=== PATIENT | female | born 1940 | race Caucasian/White ===

== ENCOUNTER 2016-10-07 15:10 | Outpatient (CLI) | payer MEDICARE, OTHER ==
[2015-08-11 12:40] VITALS: BP 180/71
--- NOTE | 2016-10-08 06:16 | Diagnostic Imaging Report ---
Report Submission Date: Oct 07, 2016 11:51:10 PM [employer] FINDER Patient ~ Study Name: KIERAN MORALES ~ Date: Oct 07, 2016 3:25:30 PM [employer]ER ~ Modality Type: CR Gender: F ~ Description: CHEST : 42 ~ Institution: [facility] Physician: CAMILLE ONTIVEROS ~ ~ ~ ~ Chest - two views Clinical history: ~Cough. ~Difficulty breathing for 2 days. Findings: ~Examination of the chest in PA and lateral views with comparison to examination of 04/19/2016 demonstrates postoperative changes with multiple sternotomy wires. ~Cardiac silhouette is enlarged and the aorta is atherosclerotic. ~There are small bilateral pleural effusions blunting the costophrenic angles. ~There is minimal pulmonary congestion. Impression: ~ 1. ~Minimal congestion with small bilateral effusions. 2. ~Cardiomegaly and aortic atherosclerosis. ~These findings are consistent with congestive heart failure. 3. ~Postoperative chest. ~ Electronically signed on Oct 07, 2016 11:51:10 PM [employer] FINDER by: Kehinde MATTHEW
== END 2016-10-07 15:11 ==
LOC: LAB 15:10
PROVIDERS: ATTEND Family Medicine
DX: J06.9 Acute upper respiratory infection, unspecified (principal); R04.2 Hemoptysis
CPT/HCPCS: 71020; 87400

== ENCOUNTER 2016-11-12 14:26 | Outpatient (CLI) | payer MEDICARE, OTHER ==
[2015-08-11 12:40] VITALS: BP 180/71
== END 2016-11-12 14:27 ==
LOC: POD 14:26
PROVIDERS: ATTEND Podiatrist
DX: B35.1 Tinea unguium (principal); M79.674 Pain in right toe(s); M79.675 Pain in left toe(s)
CPT/HCPCS: 11721; G0463

== ENCOUNTER 2017-01-14 17:15 | Observation (INO) | payer MEDICARE, OTHER ==
[2017-01-14] MEDS ORDERED: ALBUTEROL SULFATE 200 PUFF INHALER INH PRN (18:02)
--- NOTE | 2017-01-14 18:10 | History and Physical Report ---
History of Present Illnes - History of Present Illness Reason for Visit: Obstipation History of Present Illness: Kaylynn is seen today as a walk in to the clinic with c/o obstipation. She has been taking stool softeners for the past few days, and today tried to take some magnesium citrate, however she has not had any results. She has not had any fever, but has been very nauseated. She has an urge to go, but cannot do so. - Past Medical History Cardiac: CHF, HTN, Hyperlipidemia Pulmonary: Asthma, Sleep Apnea Gastrointestinal: GERD, Other (Melara's esophagus) Psych: Depression Endocrine: Hypothyroidism - Past Surgical History Past Surgical History: Hysterectomy, Hernia Repair (Ventral), Other (Mitral valve replacement (porcine)) - Past Social History Smoke: No Alcohol: None Drugs: None Lives: With Family Domestic Violence: Negative - Health Maintenance Health Maintenance: Cholesterol Influenza Vaccine: Current for this Influenza Season Pneumonia Vaccine: Yes Resuscitation Status: Resusciation Status Resuscitation Status Full Code - Unable to Obtain History Unable to Obtain: No Review of Systems - Review of Systems Constitutional: negative: Fever, Chills Eyes: negative: pain ENT: negative: Ear Pain Respiratory: negative: Cough Cardiovascular: negative: Chest Pain Gastrointestinal: Nausea, Constipation Genitourinary: negative: Dysuria Musculoskeletal: negative: Neck Pain Skin: negative: Rash Neurological: Weakness - Medications/Allergies Allergies/Adverse Reactions: Allergies Allergy/AdvReac Type Severity Reaction Status Date / Time No Known Allergies Allergy Verified 05/14/15 16:01 Exam - Exam General: Alert, Oriented to Person, Oriented to Place, Oriented to Time, Cooperative, Mild distress (due to abdominal pain) HEENT: Atraumatic, PERRLA Neck: Stridor, Rigidity Lungs: Speaks full Sentences, Wheezes (right base). No: Respiratory Distress Cardiovascular: Regular rate Murmur: Systolic Murmur Murmur Location: [place] [facility] Murmur Grade: II Abdomen: Other (Diffuse tenderness), Decreased Bowel Sounds Genitourinary: No: Right Inguinal Hernia Male Genitourinary: No: Other Female Genitourinary: No: Other Integumentary: Normal, [employer], Warm Extremities: No clubbing, No cyanosis Neurological: Normal speech Psych/Mental Status: Mental status NL Assessment/Plan - Assessment/Plan (1) Obstipation Status: Acute Current Visit: Yes Assessment: Failed outpatient treatment Plan: Admit for enema, magnesium citrate Will check KUB/CBC/CXR/CMP to r/o other pathology Hope for discharge in the morning VTE Assessment - RISK FACTOR SCORE VTE RISK FACTOR SCORES: AGE OVER 60 YEARS - RISK VTE LOW RISK: SCORE OF 1 OR LESS (RISK PROXIMAL DVT 0.4%) NO PROPHYLAXIS NEEDED (No DVT prophylaxis indicated)
[2017-01-14] MEDS ORDERED: SIMVASTATIN 20 MG TABLET ONE (19:02)
[2017-01-14] MEDS ORDERED: MONTELUKAST SODIUM 10 MG TABLET PO ONE (19:03)
[2017-01-14 19:25] VITALS: BMI 28.2
[2017-01-14] MEDS ORDERED: MONTELUKAST SODIUM 10 MG TABLET PO SCH (21:00)
[2017-01-14] MEDS ORDERED: SIMVASTATIN 20 MG TABLET PO SCH (21:00)
[2017-01-14 21:37] LABS: BASOPHILS % 0.2 (0.0-1.5); EOSINOPHILS % 1.1 % (0.0-6.8); MEAN CORPUSCULAR HEMOGLOBIN 29.5 pg (28.0-34.0); MEAN CORPUSCULAR VOLUME 90.2 fl (80.0-100.0); MONOCYTES % 3.9 % (0.0-11.0); NEUTROPHILS # 8.6 # k/uL (1.4-7.7)
[2017-01-14 21:47] LABS: eGFR (African) > 60; eGFR (Non-African) > 60
--- NOTE | 2017-01-15 00:29 | Diagnostic Imaging Report ---
WESTON OBRIEN~ [facility] [address] [address] ~ ~ ~ ~ Report Submission Date: Jan 14, 2017 9:14:44 PM CDT Patient ~ Study Name: KIERAN MORALES ~ Date: Jan 14, 2017 8:11:06 PM CDT ~ Modality Type: CR Gender: F ~ Description: CHEST : 42 ~ Institution: [facility] Physician: WESTON OBRIEN ~ ~ ~ ~ Chest -two views CLINICAL HISTORY: ~ Dyspnea on exertion. FINDINGS: ~ Examination of the chest in PA and lateral views with comparison to examination 10/07/2016 demonstrates cardiomegaly and aortic atherosclerosis. ~There are multiple sternotomy wires. ~Spinal stimulator is present in the mid and lower thoracic spine. ~Lungs are free of coalescent infiltrate. IMPRESSION: ~ Cardiomegaly and aortic atherosclerosis. ~ Postoperative chest. ~ Electronically signed on Jan 14, 2017 9:14:44 PM CDT by: Kehinde MATTHEW
--- NOTE | 2017-01-15 00:30 | Diagnostic Imaging Report ---
WESTON OBRIEN~ [facility] [address] [address] ~ ~ ~ ~ Report Submission Date: Jan 14, 2017 9:15:44 PM CDT Patient ~ Study Name: KIERAN MORALES ~ Date: Jan 14, 2017 8:14:03 PM CDT ~ Modality Type: CR Gender: F ~ Description: ABDOMEN : 42 ~ Institution: [facility] Physician: WESTON OBRIEN ~ ~ ~ ~ Obstructive series -two views CLINICAL HISTORY: ~ Obstipation. FINDINGS: ~ Examination of the abdomen in supine and upright views demonstrates gas in the colon. ~There is no obstruction or free air. ~Degenerative changes and scoliosis are present in the lumbar spine convex to the left. IMPRESSION: ~ Lumbar spondylosis and scoliosis. ~ Nonspecific abdomen. ~ Electronically signed on Jan 14, 2017 9:15:44 PM CDT by: Kehinde MATTHEW
[2017-01-15] MEDS ORDERED: IBUPROFEN 400 MG TABLET PO ONE ×2 (01:25→09:52)
[2017-01-15] MEDS: IBUPROFEN 400 MG TABLET PO PRN ×2 (01:27→09:53)
[2017-01-15] MEDS ORDERED: PANTOPRAZOLE SODIUM 40 MG TABLET ONE (04:31)
[2017-01-15] MEDS ORDERED: METOPROLOL TARTRATE 50 MG TABLET ONE (04:31)
[2017-01-15] MEDS ORDERED: LEVOTHYROXINE SODIUM 25 MCG TABLET ONE (04:31)
[2017-01-15] MEDS ORDERED: SERTRALINE HCL 50 MG TABLET ONE (04:31)
[2017-01-15] MEDS ORDERED: LOSARTAN POTASSIUM 50 MG TABLET PO ONE (04:32)
[2017-01-15] MEDS ORDERED: amLODIPine BESYLATE 5 MG TABLET ONE (04:32)
[2017-01-15] MEDS ORDERED: GABAPENTIN 100 MG CAPSULE ONE ×2 (04:32→13:06)
[2017-01-15] MEDS ORDERED: LEVOTHYROXINE SODIUM 100 MCG TABLET PO ONE (04:32)
[2017-01-15] MEDS ORDERED: LEVOTHYROXINE SODIUM 25 MCG TABLET PO SCH (07:00)
[2017-01-15] MEDS ORDERED: PANTOPRAZOLE SODIUM 40 MG TABLET PO SCH (07:00)
[2017-01-15] MEDS: GABAPENTIN 100 MG CAPSULE PO SCH ×2 (08:37→13:08)
[2017-01-15] MEDS ORDERED: SERTRALINE HCL 50 MG TABLET PO SCH (09:00)
[2017-01-15] MEDS ORDERED: METOPROLOL TARTRATE 50 MG TABLET PO SCH (09:00)
[2017-01-15] MEDS ORDERED: LOSARTAN POTASSIUM 50 MG TABLET PO SCH (09:00)
[2017-01-15] MEDS ORDERED: amLODIPine BESYLATE 5 MG TABLET PO SCH (09:00)
[2017-01-15 15:52] VITALS: BP 147/58
--- NOTE | 2017-01-17 11:01 | Discharge Summary ---
DATE OF ADMISSION: January 14, 2017 DATE OF DISCHARGE: January 15, 2017 DIAGNOSES ON THIS HOSPITALIZATION: 1. Obstipation. 2. Hyperglycemia. 3. Anemia. SUMMARIZATION OF ADMISSION HISTORY AND PHYSICAL: This is a 76-year-old female who was seen in my office on the afternoon of January 14 with the complaint of inability to have a bowel movement for the last several days, as well as diffuse abdominal pain. She has not had any fever or chills. She did say her stools had been a little bit dark, however. She is overdue for a colonoscopy and would like to have me schedule that as an outpatient, but that was not performed during this hospitalization. HOSPITAL COURSE: She was admitted. She was given magnesium citrate and plans were made for her to have an enema; however, after the magnesium citrate, she had a very large bowel movement. She was discharged back to home then in improved condition with continuation of all of her home medications. DISCHARGE INSTRUCTIONS: I will see her back next week for an evaluation. At that point, we need to set up an EGD and colonoscopy because of her dark stools and mild anemia. It was also noted that she was hyperglycemic and we will discuss that with her, as well as draw a hemoglobin A1C at her office visit. VIPUL
== END 2017-01-15 15:51 | disposition home or self-care (01) ==
LOC: SOUTH 17:15
PROVIDERS: ADMIT Family Medicine; ATTEND Family Medicine
DX: K59.00 Constipation, unspecified (principal); R73.9 Hyperglycemia, unspecified; D64.9 Anemia, unspecified
CPT/HCPCS: 71020; 74020; 80053; 85025; G0378; G0379

== ENCOUNTER 2017-01-17 12:35 | Emergency (ER) | payer MEDICARE, OTHER ==
--- NOTE | 2017-01-17 12:59 | ED Physician Documentation ---
GI Bleed - HISTORIAN Historian: patient - HPI Stated Complaint: constipation Chief Complaint: General Adult Additional Information: constipated, went to PCP with conplaint, then given mag citrate with good results, but now has abdominal fullness "all the way around" and wants an enema , her PCP sent her here to get one. on questioning she is complaining of severe aching pain in the distribution of the Left sciatic nerve, starting in her buttocks and radiating down her leg. She also complains of urgency of urine, with oliguria/anuria. will check a ua Onset: days ago Timing: still present Severity: mild Further Comments: no - Associated Symptoms Description of Stools: constipation Abdominal Pain: other (fullness/bloating) Description of Rectal Bleed: denies: bleeding w/o stools Other Related Symptoms: denies: nausea, vomiting - ROS CONST: no problems SKIN/LYMPH: denies: leg swelling CVS/RESP: none EYES/ENT: denies: problems with vision MS: none, other (she points to her left buttock and states the pain is extraordinary when she bends or moves, radiating down her leg, she has chronic back issues arrising from scoliosis of the spine. with degenerative changes) NEURO/PSYCH: denies: headache - PAST HX Past History: denies: bleeding disorder Immunizations: UTD Allergies/Adverse Reactions: Allergies Allergy/AdvReac Type Severity Reaction Status Date / Time No Known Allergies Allergy Verified 01/17/17 13:02 Home Medications: Ambulatory Orders Medication Instructions Recorded Bisoprolol Fumarate [Zebeta] 5 mg PO D 05/14/15 Furosemide [Lasix] 20 mg PO DAILY 05/14/15 - SOCIAL HX Smoking History: non-smoker Alcohol Use: none Drug Use: none - FAMILY HX Family History: none - VITAL SIGNS Vital Signs: Vital Signs Temp Pulse Resp BP Pulse Ox 98.3 F 61 16 170/73 95 01/17/17 12:57 01/17/17 12:57 01/17/17 12:57 01/17/17 12:57 01/17/17 12:57 - REVIEWED ASSESSMENTS Nursing Assessment Reviewed: Yes Vitals Reviewed: Yes Progress - Progress Progress: she has been unable to void, so will orally hydrate her, and check a UA - EKG/XRAY/CT CT: NAD ED Results Lab/Radiology - Lab Results Lab Results: ua pos for blood nitrites - Orders Orders: ED Orders Category Date Time Status KUB [ABDOMEN 1 VIEW] [RAD] Stat Exams 01/17/17 12:55 Ordered UA W MICRO [UA W/MICRO IF INDICATED] Routine Lab 01/17/17 13:52 Ordered Ketorolac Tromethamine [Toradol] Med 01/17/17 13:52 Discontinued 60 mg .ROUTE .STK-MED ONE Ketorolac Tromethamine [Toradol] Med 01/17/17 13:52 Discontinued 60 mg IM NOW ONE methylPREDNISolone SOD SUCC [Solu-MEDROL] Med 01/17/17 13:47 Discontinued 125 mg .ROUTE .STK-MED ONE methylPREDNISolone SOD SUCC [Solu-MEDROL] Med 01/17/17 13:52 Discontinued 125 mg IM NOW ONE Abdominal Pain Physical Exam - Physical Exam General Appearance: alert, mild distress, anxious EENT: ENT inspection normal NECK: normal inspection RESPIRATORY: no resp distress CVS: reg rate & rhythm, equal pulses ABDOMEN: soft, normal bowel sounds, no distension, non-tender BACK: other (palp pain in left buttock, center) SKIN: warm/dry EXTREMITIES: other (pain radiating from left buttock down post-lat left thigh leg) NEURO: oriented X3, motor nml, sensation nml, mood/affect nml Vital Signs: Vital Signs Temp Pulse Resp BP Pulse Ox 98.3 F 61 16 170/73 95 01/17/17 12:57 01/17/17 12:57 01/17/17 12:57 01/17/17 12:57 01/17/17 12:57 Discharge Clincal Impression: UTI (urinary tract infection) Qualifiers: Urinary tract infection type: site unspecified Hematuria presence: without hematuria Qualified Code(s): N39.0 - Urinary tract infection, site not specified Sciatica Qualifiers: Laterality: left Qualified Code(s): M54.32 - Sciatica, left side Clincal Impression: (Ruled Out): Dizziness Referrals: Zack Segal MD [Primary Care Provider] - 2 Days Home Medications: Ambulatory Orders Bisoprolol Fumarate [Zebeta] 5 mg PO D 05/14/15 Furosemide [Lasix] 20 mg PO DAILY 05/14/15 Condition: Good Disposition: 01 HOME, SELF-CARE Decision to Admit: NO Date of Decison to Admit: 01/17/17 Decision Time: 14:48
[2017-01-17] MEDS ORDERED: methylPREDNISolone SOD SUCC 125 MG/2 ML VIAL ONE (13:47)
[2017-01-17] MEDS ORDERED: KETOROLAC TROMETHAMINE 60 MG/2 ML VIAL ONE (13:52)
[2017-01-17] MEDS: methylPREDNISolone SOD SUCC 125 MG/2 ML VIAL IM ONE (13:56)
[2017-01-17] MEDS: KETOROLAC TROMETHAMINE 60 MG/2 ML VIAL IM ONE (13:56)
[2017-01-17 15:05] VITALS: BP 171/55
[2017-01-17 15:23] LABS: APPEARANCE,URINE CLEAR (CLEAR); COLOR,URINE YELLOW (YELLOW)
[2017-01-17 15:24] LABS: OCCULT BLOOD,URINE TRACE-INTACT (NEGATIVE); UROBILINOGEN URINE 0.2 Eu (0.2-1.0)
--- NOTE | 2017-01-17 16:23 | Diagnostic Imaging Report ---
[facility] [address] [facility] [address] Report Submission Date: January 17, 2017 1:20:13 PM CDT Patient Study Name: KIERAN MORALES Date: January 17, 2017 1:00:40 PM CDT Modality Type: CR Gender: F Description: ABDOMEN : 42 Institution: [facility] Physician KAY BUENO Abdomen -one view CLINICAL HISTORY: Constipation. FINDINGS: Examination abdomen in single AP view with comparison to examination of 2016 demonstrates degenerative changes and mild scoliosis in the lumbar spine with scoliosis convex to the left. Battery pack for spinal stimulator superimposes the left upper quadrant. Abdominal bowel gas pattern is unremarkable. IMPRESSION: Mild lumbar spondylosis and scoliosis. No significant change since 01/14/2017. Electronically signed on January 17, 2017 1:20:13 PM CDT by: Kehinde MATTHEW
== END 2017-01-17 15:04 | disposition home or self-care (01) ==
LOC: ED 12:35
DX: N39.0 Urinary tract infection, site not specified (principal); M54.32 Sciatica, left side
CPT/HCPCS: 74000; 81002; 87086; J1885; J2930; 87186; 96372; 99283

== ENCOUNTER 2017-01-29 06:50 | Inpatient (IN) | payer MEDICARE, OTHER ==
[2017-01-29] MEDS ORDERED: IPRATROPIUM/ALBUTEROL SULFATE 3 ML AMPUL.NEB NEB ONE ×2 (07:02→07:05)
--- NOTE | 2017-01-29 07:11 | ED Physician Documentation ---
Upper Respiratory Symptoms - HISTORIAN Historian: patient - HPI Stated Complaint: cough congestion Chief Complaint: Upper Respiratory Symptoms Additional Information: 3 days of not feeling well, cough congestion. uses nebs at home, unknown fever, says high BP but cant find BP monitor at home. was discharged from here 2 weeks ago with constipation. Onset: days ago Duration: constant Context: denies: recent foreign travel, insect bite(s), multiple patients Severity: mild Associated Symptoms: productive cough, shortness of breath. denies: fever, chills, sweating, runny nose, sinus drainage, sore throat, hoarseness, headache Worsened by Deep Breath: No Further Comments: no - ROS CONST/EYES: denies: weakness CVS/RESP: shortness of breath LYMPH: leg swelling GI/: none. denies: abdominal pain, problems urinating, vomiting NEURO/PSYCH: denies: fainting, dizziness MS/SKIN: rash. denies: joint pain, muscle aches - PAST HX Lung Disease: COPD PE Risk Factors: hypertension, leg swelling Other History: CHF Surgeries/Procedures: colon Immunizations: UTD Allergies/Adverse Reactions: Allergies Allergy/AdvReac Type Severity Reaction Status Date / Time No Known Allergies Allergy Verified 01/29/17 07:24 Home Medications: Ambulatory Orders Medication Instructions Recorded Bisoprolol Fumarate [Zebeta] 5 mg PO D 05/14/15 Furosemide [Lasix] 20 mg PO DAILY 05/14/15 - SOCIAL HX Smoking History: non-smoker Alcohol Use: none Drug Use: none - FAMILY HX Family History: none - VITAL SIGNS Vital Signs: Vital Signs Temp Pulse Resp BP Pulse Ox 171/55 01/17/17 15:02 - REVIEWED ASSESSMENTS Nursing Assessment Reviewed: Yes Vitals Reviewed: Yes Progress - Results/Orders Results/Orders: spoke with dr Segal, he agrees to admit, will see her on floor. ED Results Lab/Radiology - Lab Results Lab Results: wbc 11.6 with 85 segs BNP 1785 - Radiology Radiology Impressions: CHF with effusion, infiltrate - Orders Orders: ED Orders Category Date Time Status CHEST P.A.&LAT 2 VIEWS [RAD] Stat Exams 01/29/17 07:07 Ordered CBC/PLATELET/DIFF Routine Lab 01/29/17 Ordered CMP Routine Lab 01/29/17 Ordered Ipratropium/Albuterol Sulfate [Duoneb] Med 01/29/17 07:02 Discontinued 3 ml NEB .STK-MED ONE Ipratropium/Albuterol Sulfate [Duoneb] Med 01/29/17 07:05 Once 3 ml NEB NOW ONE Oxygen Daily Oxygen 01/29/17 07:15 Ordered Upper Respiratory Symptoms - EXAM General Appearance: no acute distress, alert EENT: eyes nml inspection, nml ENT inspection, lids & conjunct. nml, nose nml, pharynx nml, airway nml. No: rhinorrhea, pharyngeal erythema Neck: normal inspection, supple. No: lymphadenopathy Respiratory: no resp. distress, speaks full sentences, wheezes, rales, no pleuritic chest pain. No: no pain on inspiration, respiratory distress, accessory muscle use, chest wall tenderness Abdomen: non-tender, nml bowel sounds, no distention CVS: reg rate & rhythm, heart sounds normal, equal pulses, no murmur Skin: rash (bilat pedal rash, chronic, has "cream from medical typist" but hasn' t used.) Extremities: non-tender, normal range of motion. No: no edema Neuro/Psych: oriented x3, neuro intact, mood/affect nml Discharge Clincal Impression: Hypoxia CHF (congestive heart failure) Qualifiers: Congestive heart failure type: unspecified congestive heart failure type Congestive heart failure chronicity: acute on chronic Qualified Code(s): I50.9 - Heart failure, unspecified Pneumonia Qualifiers: Pneumonia type: due to unspecified organism Laterality: bilateral Lung location : unspecified part of lung Qualified Code(s): J18.9 - Pneumonia, unspecified organism Hypertension Qualifiers: Hypertension type: essential hypertension Qualified Code(s): I10 - Essential ( primary) hypertension Referrals: Zack Segal MD [Primary Care Provider] - 2 Days Home Medications: Ambulatory Orders Bisoprolol Fumarate [Zebeta] 5 mg PO D 05/14/15 Furosemide [Lasix] 20 mg PO DAILY 05/14/15 Condition: Good Disposition: 09 ADMITTED INPATIENT Decision to Admit: [id number] Date of Decison to Admit: 01/29/17 Decision Time: 08:15
[2017-01-29 07:24] LABS: BASOPHILS % 0.2 (0.0-1.5); EOSINOPHILS % 1.6 % (0.0-6.8); MEAN CORPUSCULAR HEMOGLOBIN 28.9 pg (28.0-34.0); MONOCYTES % 2.3 % (0.0-11.0); NEUTROPHILS # 9.8 # k/uL (1.4-7.7)
[2017-01-29 07:38] LABS: eGFR (African) > 60; eGFR (Non-African) > 60
[2017-01-29] MEDS ORDERED: FUROSEMIDE 20 MG/2 ML VIAL IVP ONE (08:09)
[2017-01-29] MEDS ORDERED: CloNIDine HCL 0.1 MG TABLET PO ONE (08:13)
[2017-01-29] MEDS ORDERED: cefTRIAXone SODIUM ADVANTAGE 1 GM VIAL.PORT IV ONE (08:40)
[2017-01-29] MEDS ORDERED: AZITHROMYCIN 500 MG VIAL IV ONE (08:44)
[2017-01-29] MEDS ORDERED: 0.9 % SODIUM CHLORIDE 250 ML IV ONE (08:44)
[2017-01-29] MEDS ORDERED: cefTRIAXone SODIUM 1 GM VIAL ONE (08:54)
[2017-01-29] MEDS ORDERED: 0.9 % SODIUM CHLORIDE 0 ML IV ONE (08:54)
[2017-01-29] MEDS: cefTRIAXone SODIUM 1 GM in 0.9 % SODIUM CHLORIDE 50 ML IV SCH (09:05)
[2017-01-29] MEDS: AZITHROMYCIN 500 MG in 0.9 % SODIUM CHLORIDE 250 ML IV SCH (09:26)
--- NOTE | 2017-01-29 09:56 | History and Physical Report ---
History of Present Illnes - History of Present Illness Reason for Visit: Cough/dyspnea History of Present Illness: This is a 76 year old female patient of mine who has experienced worsening shortness of breath over the past 2 days. She has had some fever, and chills and increased dyspnea on exertion. She came to the ER last night as she could not catch her breath. Her CXR showed pulmonary vascular congestion, and right basilar and left lingular infiltrates. BNP is elevated also compared with last visit. - Past Medical History Cardiac: CHF, HTN, Hyperlipidemia Pulmonary: Asthma, Sleep Apnea Gastrointestinal: GERD, Other (Melara's esophagus) Psych: Depression Endocrine: Hypothyroidism - Past Surgical History Past Surgical History: Hysterectomy, Hernia Repair (Ventral), Other (Mitral valve repair (porcine)) - Past Social History Smoke: No Alcohol: None Drugs: None Lives: With Family Domestic Violence: Negative - Health Maintenance Health Maintenance: Cholesterol Influenza Vaccine: Current for this Influenza Season Pneumonia Vaccine: Yes Resuscitation Status: Resusciation Status Resuscitation Status Full Code - Unable to Obtain History Unable to Obtain: No Review of Systems - Review of Systems Constitutional: Fever, Chills, Sweats, Weakness, Malaise Eyes: negative: vision change ENT: negative: Ear Pain, Ear Discharge Respiratory: Cough, Shortness of Breath, SOB with Excertion, Sputum, Wheezing. negative: Hemoptysis Cardiovascular: Orthopnea. negative: Chest Pain, Palpitations Gastrointestinal: negative: Nausea, Vomiting Genitourinary: negative: Dysuria, Frequency Musculoskeletal: negative: Neck Pain Skin: negative: Rash Neurological: Weakness. negative: Confusion - Medications/Allergies Allergies/Adverse Reactions: Allergies Allergy/AdvReac Type Severity Reaction Status Date / Time No Known Allergies Allergy Verified 01/29/17 07:24 Current Inpatient Medications: Current Inpatient Medications Albuterol/Ipratropium (Duoneb) 3 ml NEB QID [facility] Amlodipine Besylate (Norvasc) 10 mg PO DAILY [facility] Enoxaparin Sodium (Lovenox) 30 mg SQ QD [facility] Stop: 02/11/17 10:01 Fluticasone Propionate (Flonase Nasal [place]) 1 spray NS DAILY [facility] Gabapentin (Neurontin) 100 mg PO TID [facility] Azithromycin 500 mg/ Sodium (Chloride) 250 mls @ 125 mls/hr IV Q24H [facility] Stop: 02/08/17 08:59 Last Admin: 05/13/17 09:26 Dose: 125 mls/hr Ceftriaxone Sodium 1 gm/ (Sodium Chloride) 50 mls @ 100 mls/hr IV QD [facility] Last Admin: 01/29/17 09:05 Dose: 100 mls/hr Ibuprofen (Advil) 400 mg PO Q6H PRN PRN Reason: PAIN OR TEMPERATURE > 101 Levothyroxine Sodium (Synthroid) 150 mcg PO 0700 [facility] Losartan Potassium (Cozaar) 25 mg PO DAILY [facility] Miscellaneous (Non Form) 1 each PO DAILY [facility] Montelukast Sodium (Singulair) 10 mg PO HS [facility] Pantoprazole Sodium (Protonix) 40 mg PO 0700 [facility] Pravastatin Sodium (Pravastatin Sodium) 40 mg PO HS [facility] Exam - Exam Vital Signs: Vital Signs (72 hours) 01/29/17 01/29/17 09:18 09:30 Pulse Rate [ 60 58 L Left Pulse ox] Respiratory 20 20 Rate Blood Pressure 124/50 124/50 [Left Arm] O2 Sat by Pulse 94 94 Oximetry General: Alert, Oriented to Person, Oriented to Place, Oriented to Time, Cooperative, Mild distress (respiratory) HEENT: Atraumatic, PERRLA, EOMI Neck: No: Stridor Lungs: Wheezes, Rales, Rhonchi, Prolonged Expiration Cardiovascular: Regular rate Murmur: No: Systolic Murmur, Diastolic Murmur Heart Murmur Grade: II Abdomen: Normal bowel sounds, Soft, No tenderness Genitourinary: No: Right Inguinal Hernia, Left Inguinal Hernia Male Genitourinary: No: Other Female Genitourinary: No: Other Integumentary: Normal, [place], Warm Extremities: No clubbing, No cyanosis, Other (2+ edema BLE) Neurological: Normal speech, Strength Equal Bilat Psych/Mental Status: Mental status NL Assessment/Plan - Assessment/Plan (1) CHF (congestive heart failure) Status: Acute Current Visit: Yes Qualifiers: Congestive heart failure type: unspecified congestive heart failure type Congestive heart failure chronicity: acute on chronic Qualified Code(s): I50.9 - Heart failure, unspecified Assessment: With exacerbation (2) Hypertension Status: Acute Current Visit: Yes Qualifiers: Hypertension type: essential hypertension Qualified Code(s): I10 - Essential (primary) hypertension Assessment: Improved control since original admission (3) Pneumonia Status: Acute Current Visit: Yes Qualifiers: Pneumonia type: due to unspecified organism Laterality: bilateral Lung location: unspecified part of lung Qualified Code(s): J18.9 - Pneumonia, unspecified organism Assessment: Started Azithromycin and Rocephin Plan: Supplemental oxygen Recheck CXR in am VTE Assessment - RISK FACTOR SCORE VTE RISK FACTOR SCORES: AGE OVER 60 YEARS, ACUTE INFECTION OTHER THEN SEPSIS - RISK VTE MODERATE RISK: SCORE OF 2 (RISK PROXIMAL DVT 2-4%) PROPHYAXIS NEEDED (On lovenox/ANDRIA hose)
[2017-01-29] MEDS: ENOXAPARIN SODIUM 30 MG/0.3 ML DISP.SYRIN SQ SCH (10:08)
[2017-01-29] MEDS ORDERED: SALINE FLUSH 10 ML DISP.SYRIN IVF ONE ×2 (11:26→14:39)
[2017-01-29 12:03] VITALS: BMI 29.2
[2017-01-29] MEDS ORDERED: PRAVASTATIN SODIUM 20 MG TABLET ONE (12:47)
[2017-01-29] MEDS: GABAPENTIN 100 MG CAPSULE PO SCH ×2 (12:55→17:32)
[2017-01-29] MEDS: IPRATROPIUM/ALBUTEROL SULFATE 3 ML AMPUL.NEB NEB SCH ×3 (12:57→21:05)
[2017-01-29] MEDS ORDERED: SERTRALINE HCL 100 MG PO SCH (13:06)
[2017-01-29] MEDS ORDERED: PRAVASTATIN SODIUM 20 MG TABLET PO SCH (13:06)
[2017-01-29] MEDS ORDERED: LEVOTHYROXINE SODIUM 150 MCG PO SCH (13:06)
[2017-01-29] MEDS ORDERED: LOSARTAN POTASSIUM 25 MG PO SCH (13:06)
[2017-01-29] MEDS ORDERED: GABAPENTIN 100 MG CAPSULE PO SCH (13:06)
[2017-01-29] MEDS ORDERED: BISOPROLOL FUMARATE 5 MG PO SCH (13:06)
[2017-01-29] MEDS ORDERED: Non-Formulary 1 EACH (Omeprazole [Omeprazole] 20 MG) PO SCH (13:06)
[2017-01-29] MEDS ORDERED: AMLODIPINE BESYLATE 10 MG PO SCH (13:06)
[2017-01-29] MEDS ORDERED: ALBUTEROL SULFATE IH SCH (13:06)
[2017-01-29] MEDS ORDERED: SERTRALINE HCL 50 MG TABLET ONE (13:49)
[2017-01-29] MEDS ORDERED: IBUPROFEN 200 MG TABLET PO ONE (13:56)
[2017-01-29] MEDS: amLODIPine BESYLATE 5 MG TABLET PO SCH (14:06)
[2017-01-29] MEDS: LOSARTAN POTASSIUM 50 MG TABLET PO SCH (14:07)
[2017-01-29] MEDS: IBUPROFEN 400 MG TABLET PO PRN ×2 (14:08→20:00)
[2017-01-29] MEDS: SERTRALINE HCL 50 MG TABLET PO SCH (14:09)
[2017-01-29] MEDS ORDERED: FUROSEMIDE 40 MG/4 ML VIAL ONE (14:39)
[2017-01-29] MEDS: FUROSEMIDE 40 MG/4 ML VIAL IVP ONE (14:50)
[2017-01-29] MEDS: FUROSEMIDE 40 MG/4 ML VIAL IVP SCH (15:15)
[2017-01-29] MEDS: MONTELUKAST SODIUM 10 MG TABLET PO SCH (20:01)
[2017-01-29] MEDS: PRAVASTATIN SODIUM 20 MG TABLET PO SCH (20:01)
[2017-01-30] MEDS ORDERED: LEVOTHYROXINE SODIUM 100 MCG TABLET PO ONE (04:53)
[2017-01-30] MEDS ORDERED: SALINE FLUSH 10 ML DISP.SYRIN IVF ONE ×2 (05:08→19:54)
[2017-01-30 05:09] LABS: APPEARANCE,URINE CLEAR (CLEAR); COLOR,URINE YELLOW (YELLOW); OCCULT BLOOD,URINE NEGATIVE (NEGATIVE); UROBILINOGEN URINE 0.2 Eu (0.2-1.0)
[2017-01-30] MEDS: LEVOTHYROXINE SODIUM 25 MCG TABLET PO SCH (06:04)
[2017-01-30] MEDS: PANTOPRAZOLE SODIUM 40 MG TABLET PO SCH (06:04)
--- NOTE | 2017-01-30 07:04 | Diagnostic Imaging Report ---
[facility] [address] [facility] [address] [place], [place]. [address] Report Submission Date: January 29, 2017 7:50:50 AM CDT Patient Study Name: KIERAN MORALES Date: January 29, 2017 7:18:58 AM CDT Modality Type: CR Gender: F Description: CHEST : 42 Institution: [facility] Physician: KAY BUENO 2 views of the chest History: CXR- CONGESTION, WHEEZING, AND COUGHING X1 WEEK Top comparison: January 14, 2017 Post sternotomy changes in the chest are again noted with cardiomegaly and aortic calcification. Pulmonary vascular congestion is present. Several calcified lung granulomas are again seen. Patchy airspace opacities are seen in the right lower lung field. There is left basilar atelectasis. Small left pleural effusion is suggested. Degenerative changes thoracic spine with spinal stimulator. Impression: Cardiomegaly with aortic calcification. Pulmonary vascular congestion. Right basilar infiltrate versus pulmonary edema. Left basilar consolidation. Small left pleural effusion Prominent left hilum is again noted, may be secondary to vascular congestion versus lingular infiltrate. Electronically signed on January 29, 2017 7:50:50 AM CDT by: Kelsey MATTHEW
[2017-01-30] MEDS: cefTRIAXone SODIUM 1 GM in 0.9 % SODIUM CHLORIDE 50 ML IV SCH (09:15)
[2017-01-30] MEDS: SERTRALINE HCL 50 MG TABLET PO SCH (09:22)
[2017-01-30] MEDS: amLODIPine BESYLATE 5 MG TABLET PO SCH (09:22)
[2017-01-30] MEDS: GABAPENTIN 100 MG CAPSULE PO SCH ×3 (09:22→16:53)
[2017-01-30] MEDS: FUROSEMIDE 40 MG/4 ML VIAL IVP SCH (09:23)
[2017-01-30] MEDS: FLUTICASONE PROPIONATE 120 SPRAY/16 GR BOTTLE NS SCH (09:23)
[2017-01-30] MEDS: FUROSEMIDE 40 MG/4 ML VIAL IVP ONE (09:23)
[2017-01-30] MEDS: IPRATROPIUM/ALBUTEROL SULFATE 3 ML AMPUL.NEB NEB SCH ×4 (09:31→21:42)
--- NOTE | 2017-01-30 09:38 | Diagnostic Imaging Report ---
[facility] [address] [facility] [address] [address] Report Submission Date: January 30, 2017 8:50:06 AM CDT Patient Study Name: KIERAN MORALES Date: January 30, 2017 8:29:33 AM CDT Modality Type: CR Gender: F Description: CHEST : 42 Institution: [facility] Physician: ZULEYKA WING/MED SURG HISTORY: 76-year-old female with right sided pneumonia, cough. COMPARISON: Chest x-ray dated 01/29/2017; abdomen radiographs dated 01/14/2017 TECHNIQUE: 2 views of the chest were performed. FINDINGS: Pulmonary hyperexpansion, cardiomegaly, spinal cord stimulator, postoperative changes of the heart are re-identified. No pneumothorax, new infiltrates, or pulmonary edema. Irregular opacities in the left lung base are stable and have the appearance of scarring. Calcified granulomas are re- identified in the left upper lobe. The humeral heads are high-riding, consistent with significant rotator cuff tendinopathy. There is thoracic spondylosis and exaggerated thoracic kyphosis without evidence of focal fracture. IMPRESSION: 1. Left basilar irregular opacities have the appearance of scarring and have been stable since radiographs dated 01/14/2017. These may be related to the patient's history of CABG. 2. Pulmonary hyperexpansion and old granulomatous disease of the chest. 3. Cardiomegaly. 4. No acute intrathoracic process is otherwise identified here. Electronically signed on January 30, 2017 8:50:06 AM CDT by: Joel MATTHEW
[2017-01-30] MEDS ORDERED: AZITHROMYCIN 500 MG VIAL IV ONE (09:42)
[2017-01-30] MEDS ORDERED: 0.9 % SODIUM CHLORIDE 0 ML IV ONE (09:42)
[2017-01-30] MEDS ORDERED: cefTRIAXone SODIUM ADVANTAGE 1 GM VIAL.PORT IV ONE (09:42)
[2017-01-30] MEDS ORDERED: 0.9 % SODIUM CHLORIDE 100 ML IV ONE (09:42)
[2017-01-30] MEDS: ENOXAPARIN SODIUM 30 MG/0.3 ML DISP.SYRIN SQ SCH (10:10)
[2017-01-30] MEDS: BISOPROLOL 5 MG PO SCH (10:43)
[2017-01-30] MEDS: AZITHROMYCIN 500 MG in 0.9 % SODIUM CHLORIDE 250 ML IV SCH (10:59)
[2017-01-30] MEDS ORDERED: guaiFENesin DM 100 MG/10 MG/5 ML 118ML BOTTLE PO PRN (14:18)
--- NOTE | 2017-01-30 14:20 | Inpatient Progress Note ---
Subjective - Required Recertification Statement I anticipate X number of days because-include discharge plan: 2 - Review of Systems Events since last encounter: Kaylynn is still coughing quite a bit. She is very dyspneic and nearly fell when she was up to go to the bathroom. No adverse side effects due to antibiotics noted. She did not sleep very well last night due to coughing. She remains on 2LNC General: Fatigue. Denies: Chills, Night Sweats HEENT: Head Aches. Denies: Visual Changes Pulmonary: Dyspnea, Cough, Pleuritic Chest Pain Cardiovascular: Denies: Chest Pain, Palpitations, Orthopnea Gastrointestinal: Denies: Nausea, Vomiting Genitourinary: Denies: Dysuria Musculoskeletal: Denies: Neck Pain, Shoulder Pain, Arm Pain Neurological: Weakness. Denies: Confusion Objective - Exam Vitals and I&O: Vital Signs Temp 98.6 F 01/30/17 13:53 Pulse 78 01/30/17 13:53 Resp 22 01/30/17 13:53 BP 103/43 01/30/17 13:53 Pulse Ox 92 01/30/17 13:53 Intake & Output 01/29/17 01/30/17 01/30/17 23:59 11:59 23:59 Intake Total 1090 360 240 Output Total 800 600 Balance 1090 -440 -360 Intake: IV 610 Right Antecubital 610 Oral 480 360 240 Output: Urine 800 600 Other: Voiding Method Toilet Toilet # Bowel Movements 0 General: Alert, Oriented to Person, Oriented to Place, Oriented to Time, Cooperative HEENT: Atraumatic, PERRLA, EOMI Neck: Supple, No JVD Lungs: Respiratory Distress (mild), Wheezes, Rales, Rhonchi, Prolonged Expiration, Decreased Air Movement Cardiovascular: Regular rate Abdomen: Normal bowel sounds, Soft, No tenderness Extremities: No clubbing, No cyanosis, No edema Skin: Normal, [place], Warm Neurological: Normal speech Psych/Mental Status: Mental status NL - Results Results: Laboratory Results WBC 11.60 K/ul (4.00-12.00) 01/29/17 07:15 RBC 3.65 M/ul (3.90-5.20) L 01/29/17 07:15 Hgb 10.5 g/dL (12.0-16.0) L 01/29/17 07:15 Hct 32.8 % (34.5-46.5) L 01/29/17 07:15 MCV 90.0 fl (80.0-100.0) 01/29/17 07:15 MCH 28.9 pg (28.0-34.0) 01/29/17 07:15 MCHC 32.1 g/dL (30.0-36.0) 01/29/17 07:15 RDW 13.3 % (11.3-14.3) 01/29/17 07:15 Plt Count 266 K/mm3 (130-400) 01/29/17 07:15 Neut % (Auto) 84.8 % (39.0-79.0) H 01/29/17 07:15 Lymph % (Auto) 10.5 % (16.0-50.0) L 01/29/17 07:15 [place] % (Auto) 2.3 % (0.0-11.0) 01/29/17 07:15 Eos % (Auto) 1.6 % (0.0-6.8) 01/29/17 07:15 Baso % (Auto) 0.2 (0.0-1.5) 01/29/17 07:15 Neut # 9.8 # k/uL (1.4-7.7) H 01/29/17 07:15 Lymph # 1.2 # k/uL (0.6-4.0) 01/29/17 07:15 [place] # 0.3 # k/uL (0.0-0.9) 01/29/17 07:15 Eos # 0.2 # k/uL (0.0-0.6) 01/29/17 07:15 Baso # 0.0 # k/uL (0.0-0.5) 01/29/17 07:15 Reactive Lymphs % 0.6 % (0.0-5.0) 01/29/17 07:15 Reactive Lymphs # 0.1 # k/uL (0.0-0.8) 01/29/17 07:15 Sodium 137 mmol/L (136-145) 01/29/17 07:15 Potassium 4.1 mmol/L (3.5-5.0) 01/29/17 07:15 Chloride 102 mmol/L (98-110) 01/29/17 07:15 Carbon Dioxide 33 mmol/L (20-32) H 01/29/17 07:15 BUN 13 mg/dL (10-26) 01/29/17 07:15 Creatinine 0.7 mg/dL (0.4-1.5) 01/29/17 07:15 Estimated Creat Clear 98 01/29/17 07:15 Est GFR ( Amer) > 60 (60-) 01/29/17 07:15 Est GFR (Non-Af Amer) > 60 (60-) 01/29/17 07:15 Glucose 132 mg/dL (70-99) H 01/29/17 07:15 Calcium 9.9 mg/dL (8.5-10.5) 01/29/17 07:15 Total Bilirubin 0.3 mg/dL (0.2-1.2) 01/29/17 07:15 AST 21 U/L (0-41) 01/29/17 07:15 ALT 19 U/L (0-45) 01/29/17 07:15 Alkaline Phosphatase 92 U/L (46-116) 01/29/17 07:15 NT-Pro-B Natriuret Pep 1768.5 pg/mL (15.0-125.0) H 01/29/17 07:15 Total Protein 7.7 g/dL (6.0-8.5) 01/29/17 07:15 Albumin 4.2 g/dL (3.0-5.5) 01/29/17 07:15 Urine Color Yellow (YELLOW) 01/29/17 09:27 Urine Appearance Clear (CLEAR) 01/29/17 09:27 Urine pH 7.0 (5.0 - 8.0) 01/29/17 09:27 Ur Specific [place] 1.015 (1.010-1.030) 01/29/17 09:27 Urine Protein Negative mg/dL (NEGATIVE) 01/29/17 09:27 Urine Ketones Negative mg/dL (NEGATIVE) 01/29/17 09:27 Urine Occult Blood Negative (NEGATIVE) 01/29/17 09:27 Urine Nitrite Negative (NEGATIVE) 01/29/17 09:27 Urine Bilirubin Negative (NEGATIVE) 01/29/17 09:27 Urine Urobilinogen 0.2 Eu (0.2-1.0) 01/29/17 09:27 Ur Leukocyte Esterase Negative (NEGATIVE) 01/29/17 09:27 Urine Glucose Negative mg/dL (NEGATIVE) 01/29/17 09:27 Influenza Type A Ag Negative (NEGATIVE) 01/29/17 07:33 Influenza Type B Ag Negative (NEGATIVE) 01/29/17 07:33 Assessment/Plan - Assessment/Plan (1) CHF (congestive heart failure) Status: Acute Current Visit: Yes Qualifiers: Congestive heart failure type: unspecified congestive heart failure type Congestive heart failure chronicity: acute on chronic Qualified Code(s): I50.9 - Heart failure, unspecified Assessment: Slightly improved Plan: Continue lasix (2) Hypertension Status: Acute Current Visit: Yes Qualifiers: Hypertension type: essential hypertension Qualified Code(s): I10 - Essential (primary) hypertension Assessment: Well controlled, last BP 103/43 Plan: Continue current BP medications (3) Pneumonia Status: Acute Current Visit: Yes Qualifiers: Pneumonia type: due to unspecified organism Laterality: bilateral Lung location: unspecified part of lung Qualified Code(s): J18.9 - Pneumonia, unspecified organism Assessment: Slight improvement Plan: Continue current antibiotic therapy SOB may be due to an element of COPD exacerbation also (4) COPD (chronic obstructive pulmonary disease) Status: Acute Current Visit: Yes Qualifiers: COPD type: COPD with acute exacerbation Qualified Code(s): J44.1 - Chronic obstructive pulmonary disease with (acute) exacerbation Assessment: Will continue nebulizer treatments Add IV solumedrol due to worsening of bronchospasm
[2017-01-30] MEDS: PATIENT OWN MED 1 EACH EACH PO SCH (14:58)
[2017-01-30] MEDS: methylPREDNISolone SOD SUCC 125 MG/2 ML VIAL IVP SCH ×2 (15:30→20:00)
[2017-01-30] MEDS ORDERED: PRAVASTATIN SODIUM 20 MG TABLET ONE (17:06)
[2017-01-30] MEDS: IBUPROFEN 400 MG TABLET PO PRN (20:10)
[2017-01-30] MEDS: PRAVASTATIN SODIUM 20 MG TABLET PO SCH (20:11)
[2017-01-30] MEDS: MONTELUKAST SODIUM 10 MG TABLET PO SCH (20:11)
[2017-01-31] MEDS ORDERED: LEVOTHYROXINE SODIUM 100 MCG TABLET PO ONE (05:34)
[2017-01-31] MEDS ORDERED: SALINE FLUSH 10 ML DISP.SYRIN IVF ONE ×5 (05:39→18:19)
[2017-01-31] MEDS: PANTOPRAZOLE SODIUM 40 MG TABLET PO SCH (06:12)
[2017-01-31] MEDS: LEVOTHYROXINE SODIUM 25 MCG TABLET PO SCH (06:12)
[2017-01-31] MEDS: methylPREDNISolone SOD SUCC 125 MG/2 ML VIAL IVP SCH ×3 (06:14→21:26)
[2017-01-31] MEDS: GABAPENTIN 100 MG CAPSULE PO SCH ×3 (08:54→17:46)
[2017-01-31] MEDS: SERTRALINE HCL 50 MG TABLET PO SCH (08:54)
[2017-01-31] MEDS: FLUTICASONE PROPIONATE 120 SPRAY/16 GR BOTTLE NS SCH (08:54)
[2017-01-31] MEDS: LOSARTAN POTASSIUM 50 MG TABLET PO SCH (08:54)
[2017-01-31] MEDS: amLODIPine BESYLATE 5 MG TABLET PO SCH (08:55)
[2017-01-31] MEDS: BISOPROLOL 5 MG PO SCH (08:57)
[2017-01-31] MEDS: IPRATROPIUM/ALBUTEROL SULFATE 3 ML AMPUL.NEB NEB SCH ×4 (09:15→21:23)
--- NOTE | 2017-01-31 09:16 | Inpatient Progress Note ---
Subjective - Required Recertification Statement I anticipate X number of days because-include discharge plan: 1 - Review of Systems Events since last encounter: Kaylynn is breathing much better this morning. She didn't sleep very well last night (likely due to steroids). She says her appetite is improved. She still has audible wheezing at the bedside, however it is less than yesterday. Her cough is better with the cough syrup. General: Denies: Chills, Night Sweats HEENT: Denies: Head Aches Pulmonary: Dyspnea, Cough Cardiovascular: Denies: Chest Pain, Palpitations Gastrointestinal: Denies: Nausea, Vomiting Genitourinary: Denies: Dysuria, Frequency Musculoskeletal: Denies: Neck Pain, Shoulder Pain Neurological: Weakness Objective - Exam Vitals and I&O: Vital Signs Temp 97.6 F 01/31/17 07:36 Pulse 78 01/31/17 07:36 Resp 18 01/31/17 07:36 BP 144/77 01/31/17 07:36 Pulse Ox 95 01/31/17 07:36 Intake & Output 01/30/17 01/30/17 01/31/17 11:59 23:59 11:59 Intake Total 360 240 360 Output Total 800 600 600 Balance -440 -360 -240 Intake: Oral 360 240 360 Output: Urine 800 600 600 Other: Voiding Method Toilet Toilet # Voids 3 # Bowel Movements 0 General: Alert, Oriented to Person, Oriented to Place, Oriented to Time, Mild distress (respiratory) HEENT: Atraumatic, PERRLA, EOMI Neck: Supple, No JVD Lungs: Wheezes, Prolonged Expiration Cardiovascular: Regular rate, Normal S1, Normal S2 Abdomen: Normal bowel sounds, Soft Extremities: No clubbing, No cyanosis Skin: Normal, [place], Warm Neurological: Normal speech Psych/Mental Status: Mental status NL - Results Results: Laboratory Results WBC 11.60 K/ul (4.00-12.00) 01/29/17 07:15 RBC 3.65 M/ul (3.90-5.20) L 01/29/17 07:15 Hgb 10.5 g/dL (12.0-16.0) L 01/29/17 07:15 Hct 32.8 % (34.5-46.5) L 01/29/17 07:15 MCV 90.0 fl (80.0-100.0) 01/29/17 07:15 MCH 28.9 pg (28.0-34.0) 01/29/17 07:15 MCHC 32.1 g/dL (30.0-36.0) 01/29/17 07:15 RDW 13.3 % (11.3-14.3) 01/29/17 07:15 Plt Count 266 K/mm3 (130-400) 01/29/17 07:15 Neut % (Auto) 84.8 % (39.0-79.0) H 01/29/17 07:15 Lymph % (Auto) 10.5 % (16.0-50.0) L 01/29/17 07:15 [place] % (Auto) 2.3 % (0.0-11.0) 01/29/17 07:15 Eos % (Auto) 1.6 % (0.0-6.8) 01/29/17 07:15 Baso % (Auto) 0.2 (0.0-1.5) 01/29/17 07:15 Neut # 9.8 # k/uL (1.4-7.7) H 01/29/17 07:15 Lymph # 1.2 # k/uL (0.6-4.0) 01/29/17 07:15 [place] # 0.3 # k/uL (0.0-0.9) 01/29/17 07:15 Eos # 0.2 # k/uL (0.0-0.6) 01/29/17 07:15 Baso # 0.0 # k/uL (0.0-0.5) 01/29/17 07:15 Reactive Lymphs % 0.6 % (0.0-5.0) 01/29/17 07:15 Reactive Lymphs # 0.1 # k/uL (0.0-0.8) 01/29/17 07:15 Sodium 137 mmol/L (136-145) 01/29/17 07:15 Potassium 4.1 mmol/L (3.5-5.0) 01/29/17 07:15 Chloride 102 mmol/L (98-110) 01/29/17 07:15 Carbon Dioxide 33 mmol/L (20-32) H 01/29/17 07:15 BUN 13 mg/dL (10-26) 01/29/17 07:15 Creatinine 0.7 mg/dL (0.4-1.5) 01/29/17 07:15 Estimated Creat Clear 98 01/29/17 07:15 Est GFR ( Amer) > 60 (60-) 01/29/17 07:15 Est GFR (Non-Af Amer) > 60 (60-) 01/29/17 07:15 Glucose 132 mg/dL (70-99) H 01/29/17 07:15 Calcium 9.9 mg/dL (8.5-10.5) 01/29/17 07:15 Total Bilirubin 0.3 mg/dL (0.2-1.2) 01/29/17 07:15 AST 21 U/L (0-41) 01/29/17 07:15 ALT 19 U/L (0-45) 01/29/17 07:15 Alkaline Phosphatase 92 U/L (46-116) 01/29/17 07:15 NT-Pro-B Natriuret Pep 1768.5 pg/mL (15.0-125.0) H 01/29/17 07:15 Total Protein 7.7 g/dL (6.0-8.5) 01/29/17 07:15 Albumin 4.2 g/dL (3.0-5.5) 01/29/17 07:15 Urine Color Yellow (YELLOW) 01/29/17 09:27 Urine Appearance Clear (CLEAR) 01/29/17 09:27 Urine pH 7.0 (5.0 - 8.0) 01/29/17 09:27 Ur Specific [place] 1.015 (1.010-1.030) 01/29/17 09:27 Urine Protein Negative mg/dL (NEGATIVE) 01/29/17 09:27 Urine Ketones Negative mg/dL (NEGATIVE) 01/29/17 09:27 Urine Occult Blood Negative (NEGATIVE) 01/29/17 09:27 Urine Nitrite Negative (NEGATIVE) 01/29/17 09:27 Urine Bilirubin Negative (NEGATIVE) 01/29/17 09:27 Urine Urobilinogen 0.2 Eu (0.2-1.0) 01/29/17 09:27 Ur Leukocyte Esterase Negative (NEGATIVE) 01/29/17 09:27 Urine Glucose Negative mg/dL (NEGATIVE) 01/29/17 09:27 Influenza Type A Ag Negative (NEGATIVE) 01/29/17 07:33 Influenza Type B Ag Negative (NEGATIVE) 01/29/17 07:33 Assessment/Plan - Assessment/Plan (1) CHF (congestive heart failure) Status: Acute Current Visit: Yes Qualifiers: Congestive heart failure type: unspecified congestive heart failure type Congestive heart failure chronicity: acute on chronic Qualified Code(s): I50.9 - Heart failure, unspecified Assessment: Improved (2) Hypertension Status: Acute Current Visit: Yes Qualifiers: Hypertension type: essential hypertension Qualified Code(s): I10 - Essential (primary) hypertension Assessment: Controlled (3) Pneumonia Status: Acute Current Visit: Yes Qualifiers: Pneumonia type: due to unspecified organism Laterality: bilateral Lung location: unspecified part of lung Qualified Code(s): J18.9 - Pneumonia, unspecified organism Assessment: Continue Azithromycin/rocephin (4) COPD (chronic obstructive pulmonary disease) Status: Acute Current Visit: Yes Qualifiers: COPD type: COPD with acute exacerbation Qualified Code(s): J44.1 - Chronic obstructive pulmonary disease with (acute) exacerbation Assessment: Improved with addition of steroid Plan: Continue steroids/nebulizers Hope for d/c to home in the morning
[2017-01-31] MEDS: FUROSEMIDE 40 MG/4 ML VIAL IVP SCH (09:18)
[2017-01-31] MEDS: cefTRIAXone SODIUM 1 GM in 0.9 % SODIUM CHLORIDE 50 ML IV SCH (09:25)
[2017-01-31] MEDS: ENOXAPARIN SODIUM 30 MG/0.3 ML DISP.SYRIN SQ SCH (09:30)
[2017-01-31] MEDS: AZITHROMYCIN 500 MG in 0.9 % SODIUM CHLORIDE 250 ML IV SCH (10:12)
[2017-01-31] MEDS: PATIENT OWN MED 1 EACH EACH PO SCH (11:13)
[2017-01-31] MEDS ORDERED: PRAVASTATIN SODIUM 20 MG TABLET ONE (12:52)
[2017-01-31] MEDS: PRAVASTATIN SODIUM 20 MG TABLET PO SCH (20:47)
[2017-01-31] MEDS: MONTELUKAST SODIUM 10 MG TABLET PO SCH (20:47)
[2017-02-01] MEDS ORDERED: SALINE FLUSH 10 ML DISP.SYRIN IVF ONE ×4 (05:48→13:00)
[2017-02-01] MEDS: PANTOPRAZOLE SODIUM 40 MG TABLET PO SCH (05:49)
[2017-02-01] MEDS: LEVOTHYROXINE SODIUM 25 MCG TABLET PO SCH (05:55)
[2017-02-01] MEDS: methylPREDNISolone SOD SUCC 125 MG/2 ML VIAL IVP SCH ×2 (05:56→13:07)
[2017-02-01] MEDS: IPRATROPIUM/ALBUTEROL SULFATE 3 ML AMPUL.NEB NEB SCH ×2 (08:24→12:54)
[2017-02-01] MEDS: FLUTICASONE PROPIONATE 120 SPRAY/16 GR BOTTLE NS SCH (09:09)
[2017-02-01] MEDS: GABAPENTIN 100 MG CAPSULE PO SCH ×2 (09:09→14:00)
[2017-02-01] MEDS: amLODIPine BESYLATE 5 MG TABLET PO SCH (09:09)
[2017-02-01] MEDS: BISOPROLOL 5 MG PO SCH (09:10)
[2017-02-01] MEDS: SERTRALINE HCL 50 MG TABLET PO SCH (09:10)
[2017-02-01] MEDS: LOSARTAN POTASSIUM 50 MG TABLET PO SCH (09:10)
[2017-02-01] MEDS: cefTRIAXone SODIUM 1 GM in 0.9 % SODIUM CHLORIDE 50 ML IV SCH (09:11)
[2017-02-01] MEDS: PATIENT OWN MED 1 EACH EACH PO SCH ×2 (09:19→13:48)
[2017-02-01] MEDS: FUROSEMIDE 40 MG/4 ML VIAL IVP SCH (09:26)
[2017-02-01] MEDS: AZITHROMYCIN 500 MG in 0.9 % SODIUM CHLORIDE 250 ML IV SCH (11:08)
[2017-02-01] MEDS: ENOXAPARIN SODIUM 30 MG/0.3 ML DISP.SYRIN SQ SCH (11:09)
[2017-02-01 15:46] VITALS: BP 137/59
--- NOTE | 2017-02-01 16:11 | Discharge Summary ---
DATE OF ADMISSION: January 29, 2017 DATE OF DISCHARGE: February 01, 2017 DIAGNOSES ON THIS HOSPITALIZATION: 1. Congestive heart failure. 2. Bronchospasm. 3. Pneumonia. 4. Hypertension. SUMMARIZATION OF ADMISSION HISTORY AND PHYSICAL: This is a 76-year-old female who presented to the emergency room with increasing shortness of breath 2 days prior to arrival. She had some fever and some chills, as well as some dyspnea on exertion. Her initial chest x-ray showed bibasilar and lingular infiltrates. BMP results noted to be elevated. HOSPITAL COURSE: She was admitted and placed on IV Rocephin and azithromycin because of the infiltrates. Also, her Lasix was continued. She really did not improve very much the first myd-mys-r-half she was in the hospital; however, when we added IV Solu-Medrol, she did improve fairly remarkably and fairly quickly. She will be discharged to home with continuation of all of her home medications with the addition of a prednisone taper at 20 mg p.o. b.i.d. for 5 days and then 10 mg p.o. b.i.d. for 5 days, and then 10 mg p.o. daily for 5 days. I will see her back next week. Prescriptions for cefuroxime 250 mg p.o. b.i.d. was also sent out to [facility], as well as the prescription for the prednisone. Home health was consulted on discharge. CONDITION ON DISCHARGE: She is discharged to home in markedly improved condition. DISCHARGE INSTRUCTIONS: We will see her back next week in the office. VIPUL
== END 2017-02-01 15:30 | disposition home health service (06) | DRG 291 ==
LOC: ED 06:50 → SOUTH 08:34 → UNDOADMIN 08:34
PROVIDERS: ADMIT Family Medicine; ATTEND Family Medicine
DX: I50.9 Heart failure, unspecified (principal); J18.9 Pneumonia, unspecified organism; I10 Essential (primary) hypertension; J98.01 Acute bronchospasm
CPT/HCPCS: 71020; 80053; 81002; 83880; 85025; 87040; 87400; 94640; 94760; J0456; J0696; J1650; J1940; J2930; J7050; 99223; 99233; 99238; S1016

== ENCOUNTER 2017-02-11 13:59 | Outpatient (CLI) | payer MEDICARE, OTHER | END 2017-02-11 14:00 | LOC: POD 13:59 | PROVIDERS: ATTEND Podiatrist | DX: B35.1 Tinea unguium (principal); M79.674 Pain in right toe(s); M79.675 Pain in left toe(s) | CPT/HCPCS: 11721; G0463 ==

== ENCOUNTER 2017-02-17 10:21 | Outpatient (CLI) | payer MEDICARE, OTHER ==
[2017-02-17 10:49] LABS: BASOPHILS % 0.3 (0.0-1.5); MEAN CORPUSCULAR HEMOGLOBIN 29.3 pg (28.0-34.0); MEAN CORPUSCULAR VOLUME 91.7 fl (80.0-100.0); MONOCYTES % 2.2 % (0.0-11.0); NEUTROPHILS # 6.6 # k/uL (1.4-7.7)
[2017-02-17 11:15] LABS: APPEARANCE,URINE Clear (CLEAR); COLOR,URINE Yellow (YELLOW); OCCULT BLOOD,URINE Negative (NEGATIVE); UROBILINOGEN URINE 0.2 Eu (0.2-1.0)
[2017-02-17 11:19] LABS: eGFR (African) > 60; eGFR (Non-African) > 60
[2017-02-17 11:24] LABS: AMORPHOUS SEDIMENT,UR FEW (NEGATIVE)
== END 2017-02-17 10:22 ==
LOC: LAB 10:21
PROVIDERS: ATTEND Dermatology
DX: I77.6 Arteritis, unspecified (principal)
CPT/HCPCS: 36415; 80053; 81002; 85025; 86140

== ENCOUNTER 2017-03-09 16:43 | Outpatient (CLI) | payer MEDICARE, OTHER | END 2017-03-09 16:53 | LOC: LAB 16:43 | PROVIDERS: ATTEND Family Medicine | DX: I50.32 Chronic diastolic (congestive) heart failure (principal) | CPT/HCPCS: 36415; 83880 ==

== ENCOUNTER 2017-03-16 15:58 | Outpatient (CLI) | payer MEDICARE, OTHER ==
[2017-03-16 16:23] LABS: EOSINOPHILS % 2.7 % (0.0-6.8); MEAN CORPUSCULAR HEMOGLOBIN 29.3 pg (28.0-34.0); MONOCYTES % 5.2 % (0.0-11.0); NEUTROPHILS # 2.8 # k/uL (1.4-7.7)
[2017-03-16 16:40] LABS: eGFR (African) > 60; eGFR (Non-African) > 60
== END 2017-03-16 16:00 ==
LOC: LAB 15:58
PROVIDERS: ATTEND Family Medicine
DX: I50.22 Chronic systolic (congestive) heart failure (principal); Z51.81 Encounter for therapeutic drug level monitoring
CPT/HCPCS: 36415; 80053; 83880; 85025

== ENCOUNTER 2017-04-12 11:20 | Outpatient (CLI) | payer MEDICARE, OTHER ==
[2017-04-12 12:00] LABS: eGFR (African) > 60; eGFR (Non-African) > 60
== END 2017-04-12 11:21 ==
LOC: LAB 11:20
PROVIDERS: ATTEND Family Medicine
DX: I50.9 Heart failure, unspecified (principal); Z51.81 Encounter for therapeutic drug level monitoring
CPT/HCPCS: 36415; 80048

== ENCOUNTER 2017-04-25 15:47 | Outpatient (CLI) | payer MEDICARE, OTHER ==
--- NOTE | 2017-04-25 16:31 | Diagnostic Imaging Report ---
[facility] [address] [facility].[address] [address] Report Submission Date: Apr 25, 2017 4:29:38 PM CDT Patient Study Name: KIERAN MORALES Date: Apr 25, 2017 4:08:49 PM CDT Modality Type: CR Gender: F Description: CHEST : 44 Institution: [facility] Physician: WESTON OBRIEN - OP Examination: PA and lateral chest. History: Evaluate lung caruso. Comparison exam: 30 Jan 2017 Findings: PA lateral chest demonstrates a prominent cardiac silhouette with post cardiac surgical changes: stable prior study. Vascular calcifications involving the aortic arch. Stable blunting of the left costophrenic margin. Stable interstitial changes. Osseous structures are appropriate for age. Impression: Stable post cardiac surgical changes. Stable interstitial parenchymal pattern. No new/acute process. Electronically signed on Apr 25, 2017 4:29:38 PM CDT by: Justus MATTHEW
== END 2017-04-25 15:50 ==
LOC: RAD 15:47
PROVIDERS: ATTEND Family Medicine
DX: R06.09 Other forms of dyspnea (principal)
CPT/HCPCS: 71020

== ENCOUNTER 2017-05-24 14:22 | Outpatient (CLI) | payer MEDICARE, OTHER | END 2017-05-24 14:23 | LOC: POD 14:22 | PROVIDERS: ATTEND Podiatrist | DX: B35.1 Tinea unguium (principal); M79.674 Pain in right toe(s); M79.675 Pain in left toe(s) | CPT/HCPCS: 11721; G0463 ==

== ENCOUNTER 2017-08-23 13:43 | Outpatient (CLI) | payer MEDICARE, OTHER | END 2017-08-23 13:44 | LOC: POD 13:43 | PROVIDERS: ATTEND Podiatrist | DX: B35.1 Tinea unguium (principal); M79.674 Pain in right toe(s); M79.675 Pain in left toe(s) | CPT/HCPCS: 11721; G0463 ==

== ENCOUNTER 2017-12-30 12:52 | Outpatient (CLI) | payer MEDICARE, OTHER | END 2017-12-30 12:53 | LOC: LAB 12:52 | PROVIDERS: ATTEND Family Medicine | DX: I48.0 Paroxysmal atrial fibrillation (principal) | CPT/HCPCS: 36415; 85610 ==

== ENCOUNTER 2018-01-16 08:23 | Outpatient (CLI) | payer MEDICARE, OTHER ==
--- NOTE | 2018-01-16 10:07 | Diagnostic Imaging Report ---
WESTON OBRIEN [facility] [address] [facility].[address] [address] Report Submission Date: Jan 16, 2018 9:57:42 AM CDT Patient Study Name: KIERAN MORALES Date: Jan 16, 2018 8:35:18 AM CDT Modality Type: DX Gender: F Description: SPINE : 44 Institution: [facility] Physician: WESTON OBRIEN Examination: Plain film lumbar spine History: LOW BACK PAIN RADIATING DOWN LEFT LEG X 3 WEEKS (Hx) Findings: 3 views of the lumbar spine demonstrates osteopenia. No anterior compression. Significant curvature to the left. Facet degenerative changes. Spinal stimulator. Atherosclerotic disease involving the abdominal aorta. Impression: Degenerative changes and curvature. No compression deformity. Electronically signed on Jan 16, 2018 9:57:42 AM CDT by: Justus MATTHEW
--- NOTE | 2018-01-16 10:42 | Diagnostic Imaging Report ---
Report Submission Date: Jan 16, 2018 10:27:36 AM CDT Patient Study Name: KIERAN MORALES Date: Jan 16, 2018 8:53:05 AM CDT Modality Type: CT\SR Gender: F Description: CT L-SPINE W/O CONTRAS : 44 Institution: [facility] Physician: WESTON OBRIEN - OP Examination: CT abdomen/lumbar spine History: LOW BACK PAIN RADIATING DOWN LEFT LEG X 3 WEEKS (Hx) Comparison exams: Plain film dated 16 January 2018. Technique: CT abdomen axial imaging with sagittal and coronal reconstruction. Findings: Sagittal reconstruction demonstrates normal height of the lumbar vertebral bodies. No anterior compression deformity. Significant curvature to the left. Mild listhesis from L3/L4 through L5/S1. Anterior, posterior, and lateral osteophytes. Coronal reconstruction does not demonstrate overt locked or perched facets. Abdominal aorta demonstrates peripheral atherosclerotic disease. Visualized abdominal organs without gross abnormality. Significant stool throughout the large bowel. No small bowel abnormal dilation. Lung base emphysematous changes and parenchymal scarring. Spinal stimulator. Axial imaging obtained from T12 through the sacrum Lamina and pedicles are grossly intact. No ossific density within the central canal. Multilevel facet degenerative changes. Narrowing of the central canal and neural foramen from L1/2 through L5/S1. No prevertebral soft tissue abnormality. Impression: Curvature. Multilevel degenerative changes. No evidence for vertebral body compression fracture. Exam performed CT Abdomen/pelvis protocol, not lumbar spine protocol limiting fine detail. Consider obtaining lumbar spine myelogram to better evaluate for central canal and nerve impingement - patient cannot obtain MRI due to spinal stimulator. No gross intraabdominal organ abnormality. Significant large bowel stool - constipation. Lung base emphysematous changes and parenchymal scarring. Electronically signed on Jan 16, 2018 10:27:36 AM CDT by: Justus MATTHEW
== END 2018-01-16 08:24 ==
LOC: RAD 08:23
PROVIDERS: ATTEND Family Medicine
DX: M48.062 Spinal stenosis, lumbar region with neurogenic claudication (principal)
CPT/HCPCS: 72100; 72131

== ENCOUNTER 2018-01-31 09:23 | Outpatient (CLI) | payer MEDICARE, OTHER ==
[2018-01-31] MEDS ORDERED: TRIAMCINOLONE ACETONID 40MG/ML VIAL ONE (10:00)
[2018-01-31] MEDS ORDERED: SALINE FLUSH 10 ML DISP.SYRIN IVF ONE (10:00)
[2018-01-31] MEDS ORDERED: Lidocaine 1% 5ml(IM or SUTURE)(PAIN CLINIC) ONE (10:00)
--- NOTE | 2018-01-31 15:47 | HISTORY AND PHYSICAL REPORT ---
REFERRING PHYSICIAN: Dr. Zack Segal Dear Zack: HISTORY OF PRESENT ILLNESS: I had the opportunity of seeing Aurora Hill today as an outpatient at [facility]. As you are aware, Aurora Chaidez has a history of lumbar disc disease and previous stimulator placement for chronic radiculopathy by Dr. Bhatia. Her stimulator battery is no longer functional and she is also complaining of severe recalcitrant left lower extremity pain she rates at 10 over 10 on the visual analog scale and never better than 2 over 10 on the visual analog scale and getting worse. She has had a heart valve replaced and she remains on Coumadin for another 6 weeks and as I examine her today, she has classic sciatica and lumbar radiculitis at L5 nerve root distribution. PAST MEDICAL HISTORY: 1. History of seasonal allergies. 2. Asthma. 3. Melara's esophagus. 4. GERD. 5. CHF. 6. Hypertension. 7. High lipids. 8. Spinal stenosis. 9. Major depressive disorder. 10. Hypothyroidism. 11. Chronic back pain. PAST SURGICAL HISTORY: 1. Rotator cuff repair. 2. Thoracotomy. 3. Hysterectomy. 4. Ventral hernia repair. 5. Mitral valve replacement x2. Most recent was in September 2017. 6. Spinal cord stimulator implant by Dr. Bhatia. DAILY MEDICATIONS: 1. Warfarin daily as directed. 2. Pravastatin 20 mg daily. 3. Omeprazole 40 mg daily. 4. Sertraline 100 mg daily. 5. Singulair 10 mg daily. 6. Ibuprofen 800 mg t.i.d. p.r.n. 7. Albuterol inhaler p.r.n. 8. Diltiazem 240 mg daily. 9. HCTZ 25 mg daily. 10. Gabapentin 200 mg t.i.d. 11. Flonase p.r.n. 12. Levothyroxine 150 mcg daily. 13. Losartan 25 mg daily. 14. Bumex 2 mg b.i.d. 15. Extra-strength Tylenol 2 tablets t.i.d. p.r.n. 16. Aspirin 81 mg daily. 17. Vitamin D3, 1000 I.U. daily. 18. Docusate. 19. Melatonin 10 mg at bedtime. 20. Multivitamin daily. ALLERGIES: She has no known drug allergies. SOCIAL HISTORY: She has never used tobacco. She drinks alcohol socially on occasion. Denies recreational drug use. She has been for 53 years. She lives at home with her spouse. Unknown occupation or employment status. FAMILY HISTORY: Father with cancer. A brother with cancer. REVIEW OF SYSTEMS: No complaints in the last month or 2. She has increased pain with weightbearing. Pain is improved when she is lying flat. PHYSICAL EXAMINATION: HEENT: Pupils are equal, round, and reactive to light and accommodation. Extraocular movements intact. No facial droop. Neck: There is full range of motion of the cervical spine. No evidence of adenopathy. Thyroid is nontender, not enlarged. Carotids are without bruits. Chest: Clear to auscultation bilaterally. Normal chest excursion. Heart: Regular rate and rhythm without murmur. Abdomen: Benign. Normoactive bowel sounds. Motor/sensory: Intact in the upper and lower extremities. Moves all extremities freely. Extremities: Positive straight leg raise on the left. There is 4/5 strength on the left. Dorsiflexion of the foot and plantar flexion are intact. ASSESSMENT: 1. Left lumbar radiculopathy with severe 10 over [address] [facility] medical stimulator generator no longer functional at end of usable life. 3. History of heart valve replacement, on Coumadin. PLAN: I have discussed the risks and benefits. I am going to proceed with a caudal epidural injection for palliation of 10 over 10 back and left lower extremity pain today after the risks and benefits are fully discussed. We will follow her up next month. I told her she may either see Dr. Bhatia or myself for IPG generator replacement when her blood thinner can be stopped. cc: Dr. Zack MATTHEW
--- NOTE | 2018-01-31 15:51 | CAUDAL ESI WITH FLUORO ---
PROCEDURE: Caudal epidural steroid injection. DESCRIPTION OF PROCEDURE: The risks and benefits of a caudal epidural steroid injection were explained to the patient, including the risk of infection, bleeding, nerve injury, worsened pain, failure to relieve pain, spinal headache or steroid exposure risks, including hyperglycemia, hypertension, osteoporosis, and increased infectious risks. The patient understood the risks and agreed to proceed. The patient was placed on the fluoroscopy table in the prone position with a pillow underneath the abdomen. The caudal area was cleaned. AP and lateral fluoroscopic views were obtained, identifying the sacrum and sacral hiatus. The caudal epidural space was accessed from a percutaneous approach at the sacral hiatus with a needle. On entering the caudal epidural space, it was verified that there was no aspiration of blood or CSF or urine. Furthermore, the needle tip location was verified with lateral and AP fluoroscopic views. Omnipaque 240 myelogram dye was injected through the needle. The distribution of the dye was noted to be within the desired distribution within the caudal epidural space. At this point, the medication was injected into the caudal epidural space. The stylette was replaced in the needle and the needle was subsequently removed from the back. The patient tolerated the procedure without adverse sequelae. The sacral area was cleaned and a bandage was applied over the injection site. The patient was then monitored for 20 minutes following the procedure, during which time the vital signs remained stable and no adverse sequelae were noted or reported. The patient was discharged home with a city bus driver and was in good condition on discharge. ASSESSMENT: Left lumbosacral radiculitis. PLAN: Caudal epidural steroid injection today. FOLLOW UP: Patient is to call if complications or worsened pain. cc: Dr. Zack MATTHEW
== END 2018-01-31 09:25 ==
LOC: OUT 09:23
PROVIDERS: ATTEND Anesthesiology Pain Medicine
DX: M54.17 Radiculopathy, lumbosacral region (principal)
CPT/HCPCS: 62323; 99213; G0463; J3301; Q9966

== ENCOUNTER 2018-02-15 15:03 | Outpatient (CLI) | payer MEDICARE, OTHER ==
--- NOTE | 2018-02-15 17:37 | Diagnostic Imaging Report ---
WESTON OBRIEN [facility] [address] [facility] [address] [address] Report Submission Date: February 15, 2018 4:46:28 PM CDT Patient Study Name: KIERAN MORALES Date: February 15, 2018 3:16:44 PM CDT Modality Type: DX Gender: F Description: SPINE : 44 Institution: [facility] Physician: WESTON OBRIEN Examination: Plain film lumbar spine History: L-SPINE, LOW BACK PAIN AND PAIN DOWN LEGS AFTER FALL ABOUT 10 DAYS AGO (Hx) Comparison exam: 16 January 2018 Findings: 5 views of the lumbar spine demonstrates osteopenia. No anterior compression. Significant curvature to the left. Facet degenerative changes. Spinal stimulator. Atherosclerotic disease involving the abdominal aorta. Impression: Degenerative changes and curvature. No compression deformity. Patient's neurologic symptoms could be further evaluated with lumbar myelogram if clinically warranted - patient has a spinal stimulator precluding MRI evaluation Electronically signed on February 15, 2018 4:46:28 PM CDT by: Justus MATTHEW
== END 2018-02-15 15:04 ==
LOC: RAD 15:03
PROVIDERS: ATTEND Family Medicine
DX: M54.41 Lumbago with sciatica, right side (principal); M54.42 Lumbago with sciatica, left side
CPT/HCPCS: 72110

== ENCOUNTER 2018-03-07 10:33 | Outpatient (CLI) | payer MEDICARE, OTHER ==
--- NOTE | 2018-03-09 18:27 | PAIN CLINIC PROGRESS NOTES ---
REASON FOR VISIT: Ms. Hill follows up with continued radicular pain in her left hip and left leg. She has been on Coumadin. We have a call into Dr. Perez's office and I have not been able to ascertain when we can stop the Coumadin. She also has a spinal cord stimulator in which has an IPG that needs replacement. ASSESSMENT: 1. Lumbar radiculitis. 2. Failed laminectomy pain syndrome. 3. Indwelling stimulator with currently a nonfunctional IPG. PLAN: At this point, I have talked to her about repeating an injection with the possibility of stopping the Coumadin and doing a selective nerve root block and the possibility for IPG replacement. At this point, I am going to follow her up on March 21 for either a transforaminal injection or a caudal injection depending on whether or not she is able to stop the Coumadin for 4 days. cc: Dr. Zack MATTHEW
== END 2018-03-07 10:34 ==
LOC: OUT 10:33
PROVIDERS: ATTEND Anesthesiology Pain Medicine
DX: M54.12 Radiculopathy, cervical region (principal)

== ENCOUNTER 2018-03-21 08:44 | Outpatient (CLI) | payer MEDICARE, OTHER ==
[2018-03-21] MEDS ORDERED: TRIAMCINOLONE ACETONID 40MG/ML VIAL ONE (10:25)
[2018-03-21] MEDS ORDERED: BUPIVACAINE HCL/PF 2.5 MG/ML 10ML VIAL IV ONE (10:25)
[2018-03-21] MEDS ORDERED: Lidocaine 1% 5ml(IM or SUTURE)(PAIN CLINIC) ONE (10:25)
--- NOTE | 2018-03-24 14:03 | LUMBAR TFESI ---
PREOPERATIVE DIAGNOSES: 1. Left lower extremity radiculitis. 2. History of spinal cord stimulator placement, now with battery failure. Plan for an L5 transforaminal injection today now that she is off of Coumadin. PROCEDURE: Left L5 lumbar transforaminal epidural steroid injection with fluoroscopic guidance. DESCRIPTION OF PROCEDURE: The risks and benefits were discussed with the patient including the risks of infection, bleeding, nerve injury, and headache, as well as the risks of steroid exposure causing hyperglycemia, hypertension, osteoporosis, or increased infectious risk. The patient understood these risks and agreed to proceed. Consent was obtained. The patient was placed in the prone position on the fluoroscopy table with a pillow underneath the abdomen to afford anterior flexion of the lumbar spine. The low back was cleaned and a sterile drape was applied. AP, lateral and oblique fluoroscopic views were obtained identifying the L5 vertebral body and L5 transverse process. An oblique view of the transverse process and pedicles was obtained. A spinal needle was advanced under direct-beam (barrel view) fluoroscopic guidance until the tip contacted the superior-most aspect of the left S1 superior articulating process. The needle was then directed superiorly and medially a few millimeters towards the intervertebral foramen. A lateral fluoroscopic view was obtained and the needle was advanced into the inferior/ anterior aspect of the L5 neural foramen (L5-S1 intervertebral foramen) epidural space. It was verified that there was no aspiration of CSF or blood. Omnipaque 240 myelogram dye was injected through the needle. The dye was noted to course in the desired distribution within the lumbar foramen epidural space. The medication was injected into the epidural space. The stylet was replaced in the needle and the needle was removed from the back. The patient tolerated the procedure well. The back was cleaned and a bandage was applied over the injection site. The patient was monitored for 20 minutes following the procedure. During this time the vital signs remained stable and the patient experienced no adverse sequelae. The patient was discharged home in good condition. ASSESSMENT: Lumbar radiculitis. PLAN: Left L5 lumbar transforaminal epidural steroid injection with fluoroscopic guidance today. FOLLOWUP: Return to clinic if problems develop or worsen. cc: Dr. Zack MATTHEW
== END 2018-03-21 08:46 ==
LOC: OUT 08:44
PROVIDERS: ATTEND Anesthesiology Pain Medicine
DX: M54.16 Radiculopathy, lumbar region (principal)
CPT/HCPCS: J3301; J3490; Q9966; 64483; 99213; G0463

== ENCOUNTER 2018-03-23 10:06 | Emergency (ER) | payer MEDICARE, OTHER ==
[2018-03-23] MEDS: NALBUPHINE HCL 10 MG/1 ML IM ONE (11:50)
[2018-03-23] MEDS: ORPHENADRINE CITRATE 60 MG/2ML IM ONE (11:50)
[2018-03-23 21:14] VITALS: BP 142/64
--- NOTE | 2018-03-24 00:15 | ED Physician Documentation ---
General Adult - HISTORIAN Historian: patient - HPI Stated Complaint: Steroid injection on Tuesday, discomfort ever since Chief Complaint: General Adult Further Comments: yes (78 year old female patient presents with complaint of low back pain radiating into right hip. Patient had steriod injection this week with DR Fernandez, states pain has not improved since injection. Denies loss of bowel or bladder. C/O difficulty walking related to pain.) - ROS CONST: no problems EYES/ENT: none CVS/RESP: none GI/: none MS/SKIN/LYMPH: none - PAST HX Past History: CHF, hypertension, other (chronic back pain, GERD, asthma, Melara 's, hypothyroidism, ) Surgeries/Procedures: other (MVR - on coumadin) Allergies/Adverse Reactions: Allergies Allergy/AdvReac Type Severity Reaction Status Date / Time No Known Allergies Allergy Verified 01/29/17 07:24 Home Medications: Ambulatory Orders Medication Instructions Recorded Bisoprolol Fumarate [Zebeta] 5 mg PO D 05/14/15 - SOCIAL HX Smoking History: non-smoker - FAMILY HX Family History: No - VITAL SIGNS Vital Signs: Vital Signs Temp Pulse Resp BP Pulse Ox 98.8 F 72 16 142/64 03/23/18 10:07 03/23/18 21:11 03/23/18 21:11 03/23/18 21:11 - REVIEWED ASSESSMENTS Nursing Assessment Reviewed: Yes Vitals Reviewed: Yes Progress - Progress Progress: Patient on coumadin for Mitral valve replacement; will not treat pain with NSAID. On SSRI for depression, will not use ultram. Prescription for Tylenol #3, follow up with Dr Fernandez; medicated for pain and spasm while in ER. ED Results Lab/Radiology - Orders Orders: ED Orders Category Date Time Status Nalbuphine HCl [Nubain] Med 03/23/18 11:40 Discontinued 10 mg IM NOW ONE Orphenadrine Citrate [Norflex] Med 03/23/18 11:38 Discontinued 60 mg IM NOW ONE General Adult Physical Exam - PHYSICAL EXAM GENERAL APPEARANCE: mild distress EENT: eye inspection normal, [place] RESPIRATORY: no resp distress, chest non-tender, breath sounds normal CVS: reg rate & rhythm, heart sounds normal, equal pulses, no murmur, no gallop , PMI nml, no JVD, no friction rub, 24 ABDOMEN: soft, no organomegaly, normal bowel sounds, no abdominal bruit, no distension BACK: normal inspection, no CVA tenderness, other (lumbar tenderness in paraspinous muscles; c/o pain radiating into right buttock with palpation) SKIN: normal color, warm/dry, NR, INT, PAL, DR EXTREMITIES: non-tender, normal range of motion, no evidence of injury, no edema , J, SPEECH LANGUAGE PATHOLOGIST PRN NEURO: oriented X3, motor nml, sensation nml, mood/affect nml Discharge Clincal Impression: Sciatica Qualifiers: Laterality: left Qualified Code(s): M54.32 - Sciatica, left side Back pain Qualifiers: Back pain location: low back pain Chronicity: chronic Back pain laterality: left Sciatica presence: with sciatica Sciatica laterality: sciatica of left side Qualified Code(s): M54.42 - Lumbago with sciatica, left side; G89.29 - Other chronic pain; G89.29 - Other chronic pain Referrals: Zack Segal MD [Primary Care Provider] - 2 Days Condition: Stable Disposition: 01 HOME, SELF-CARE Decision to Admit: NO Decision Time: 11:50
== END 2018-03-23 11:58 | disposition home or self-care (01) ==
LOC: ED 10:06
DX: M54.32 Sciatica, left side (principal); M54.42 Lumbago with sciatica, left side; G89.29 Other chronic pain
CPT/HCPCS: J2300; J2360; 96372; 99283

== ENCOUNTER 2018-04-04 09:09 | Outpatient (CLI) | payer MEDICARE, OTHER ==
--- NOTE | 2018-04-04 14:40 | SACRAL TFESI ---
Dear Zack: SUBJECTIVE: I had the opportunity of following up with Kaylynn Hill. This is a patient with an L5-S1 spondylolisthesis and, otherwise, multi-level degenerative disease with currently an implantable IPG that is at the end of its usable life. She has failed caudal and an L5 transforaminal at this point and I have told her that because of the spondylolisthesis, I would place an S1 transforaminal today , but that we really need to consider getting her battery replaced and getting the stimulator functional again, as she tells me that when it was working, it was very effective. Plan today for a left S1 transforaminal nerve root block and then we will get her on our schedule for battery revision. PROCEDURE: Left S1 nerve root transforaminal epidural steroid injection with fluoroscopic guidance. DESCRIPTION OF PROCEDURE: The risk and benefits of the injections were discussed with the patient, including the risk of infection, bleeding and nerve injury. Furthermore, I discussed the risk of steroid exposure causing hyperglycemia, hypertension, osteoporosis, of increased infectious risks. The patient understood these risks and agreed to proceed. Consent was obtained. The patient was placed in the prone position on the fluoroscopy table. The sacral region was cleaned and a sterile drape was applied. AP, lateral and oblique fluoroscopic views were obtained identifying the sacrum and the S1 neural foramen. A spinal needle was advanced under direct fluoroscopic guidance until the tip was located in the lateral aspect of the foramen epidural space. This was confirmed with AP and lateral fluoroscopic views. Care was exercised not to allow the needle to pass through the sacrum anteriorly. It was verified that there was no aspiration of CSF or blood. Omnipaque 240 myelogram dye was injected through the needle. The dye was noted to course in the desired distribution within the S1 sacral foramen epidural space and out the S1 nerve root. The medication was injected into the epidural space. The stylet was replaced in the needle and the needle was removed from the back. The patient tolerated the procedure well. The back was cleaned and a bandage was applied over the injection site. The patient was monitored for 10-20 minutes following the procedure. During this time the vital signs remained stable and the patient experienced no adverse sequelae. The patient was discharged home in good condition. ASSESSMENT: 1. Lumbar radiculitis. 2. L5-S1 spondylolisthesis. 3. Neurostimulator currently at end of usable life and need for battery revision. PLAN: Left S1 nerve root transforaminal epidural steroid injection with fluoroscopic guidance. FOLLOW UP: Return to clinic if problems develop or worsen. cc: Dr. Zack MATTHEW
== END 2018-04-04 09:14 ==
LOC: OUT 09:09
PROVIDERS: ATTEND Anesthesiology Pain Medicine
DX: M43.18 Spondylolisthesis, sacral and sacrococcygeal region (principal); M54.18 Radiculopathy, sacral and sacrococcygeal region
CPT/HCPCS: 64483; 99213; G0463; Q9966

== ENCOUNTER 2018-05-02 13:44 | Outpatient (CLI) | payer MEDICARE, OTHER ==
[2018-05-02 14:13] LABS: BASOPHILS % 0.5 (0.0-1.5); EOSINOPHILS % 0.8 % (0.0-6.8); MEAN CORPUSCULAR HEMOGLOBIN 30.3 pg (28.0-34.0); MONOCYTES % 5.1 % (0.0-11.0); NEUTROPHILS # 5.2 # k/uL (1.4-7.7)
[2018-05-02 14:24] LABS: APPEARANCE,URINE CLEAR (CLEAR); COLOR,URINE YELLOW (YELLOW); OCCULT BLOOD,URINE NEGATIVE (NEGATIVE); UROBILINOGEN URINE 0.2 Eu (0.2-1.0)
[2018-05-02 14:25] LABS: eGFR (African) > 60; eGFR (Non-African) > 60
== END 2018-05-02 14:01 ==
LOC: LAB 13:44
PROVIDERS: ATTEND Family Medicine
DX: R41.0 Disorientation, unspecified (principal); Z79.899 Other long term (current) drug therapy
CPT/HCPCS: 36415; 80053; 81002; 85025; 85610; 87086

== ENCOUNTER 2018-05-10 09:50 | Outpatient (CLI) | payer MEDICARE, OTHER ==
[2018-05-10 11:43] LABS: eGFR (African) > 60; eGFR (Non-African) > 60
== END 2018-05-10 09:52 ==
LOC: LAB 09:50
PROVIDERS: ATTEND Family Medicine
DX: E87.6 Hypokalemia (principal)
CPT/HCPCS: 36415; 80048

== ENCOUNTER 2018-11-29 10:57 | Outpatient (CLI) | payer MEDICARE, OTHER ==
[2018-11-29 17:08] LABS: eGFR (Non-African) > 60
== END 2018-11-29 11:00 ==
LOC: LABRHC 10:57
PROVIDERS: ATTEND Family Medicine
DX: E87.6 Hypokalemia (principal); I50.9 Heart failure, unspecified; Z51.81 Encounter for therapeutic drug level monitoring
CPT/HCPCS: 36415; 80048

== ENCOUNTER 2019-02-28 15:06 | Outpatient (CLI) | payer MEDICARE, OTHER ==
[2019-04-03 14:23] LABS: BASOPHILS % 0.4 % (0.0-1.5); NEUTROPHILS # 3.4 # k/uL (1.4-7.7)
== END 2019-02-28 15:11 | disposition home or self-care (01) ==
LOC: LAB 15:06
PROVIDERS: ATTEND Family Medicine
DX: I10 Essential (primary) hypertension (principal); R23.3 Spontaneous ecchymoses
CPT/HCPCS: 36415; 85025

== ENCOUNTER 2019-08-06 11:11 | Outpatient (CLI) | payer MEDICARE, OTHER ==
[2019-08-06 11:37] LABS: BASOPHILS % 0.4 % (0.0-1.5)
[2019-08-06 14:05] LABS: eGFR (Non-African) > 60
--- NOTE | 2019-08-06 16:49 | Diagnostic Imaging Report ---
PATIENT MR#: [id number] PATIENT PATIENT NAME: KIERAN MORALES DATE OF : 1940 REFERRING PHYSICIAN: Zack Segal EXAM DATE: 08/06/2019 ACCESSION NUMBER: [id number] EXAM DESCRIPTION: CHEST 2VIEW HISTORY: PRODUCTIVE COUGH X 3 DAYS. COMPARISON: April 25, 2017. CHEST RADIOGRAPH, FRONTAL AND LATERAL: Upper mediastinum: Not widened. Atherosclerotic calcification of the aortic arch. Heart: Interval placement of aortic valve replacement. Heart size top normal. Lungs: Stable left upper lobe calcified granuloma. Hyperinflation of COPD. No lobar infiltrate, pulmo nary edema, pneumothorax or significant effusion. Skeleton: Right T9 neurostimulator leads. Median sternotomy. IMPRESSION: 1. No evidence of acute pulmonary infiltrate. 2. Stable appearance of pulmonary hyperinflation. Read by: Dr. Devyn Wang Transcribed by: Devyn Wang Transcribed Date: 08/06/2019 4:48:32 PM Electronically signed by: Dr. Devyn Wang Date signed: 08/06/2019 4:48:32 PM
== END 2019-08-06 11:16 ==
LOC: LAB 11:11
PROVIDERS: ATTEND Family Medicine
DX: E03.9 Hypothyroidism, unspecified (principal); I10 Essential (primary) hypertension; R41.3 Other amnesia; R05 Cough
CPT/HCPCS: 36415; 71046; 80053; 82607; 82746; 84443; 85025